=== PATIENT | male | born 1955 | race Caucasian/White ===

== ENCOUNTER 2024-09-19 00:11 | Emergency (ER) | payer MEDICARE, SELFPAY ==
[2024-09-19 00:12] VITALS: BP 173/100; PULSE 112; RESP 16; TEMP 36.6; O2SAT 97; BMI 34.8
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
[2024-09-19 01:19] VITALS: BP 180/134; PULSE 82; RESP 16; O2SAT 96
[2024-09-19 01:37] VITALS: BP 180/134; PULSE 85; RESP 20; O2SAT 95
--- NOTE | 2024-09-19 01:37 | PC.NURSE ---
PT BP WAS ELEVATED, PT HAS NOT TAKEN HIS BP MEDICATION TODAY. PROVIDER MADE AWARE.
== END 2024-09-19 01:38 | disposition home or self-care (01) ==
PROVIDERS: Emergency Provider Emergency Medicine; PCP Family Medicine
DX: F43.9 Reaction to severe stress, unspecified (principal)
CPT/HCPCS: 99283